=== PATIENT | male | born 1950 | race Caucasian/White ===

== ENCOUNTER → 2018-06-06 | Day surgery (SDC) | payer OTHER ==
[2018-06-05 12:27] VITALS: BMI 20.3
--- NOTE | 2018-06-05 19:05 | HP ---
HISTORY OF PRESENT ILLNESS: This is a 68-year-old male, who lives in [place]. The patient had gastric cancer surgery when he was living in [place]. The patient is doing well at present time. He has no specific GI symptoms. He comes for follow EGD because of previous gastric cancer surgery. ALLERGIES: NONE. MEDICAL ILLNESS: 1. Gastric cancer, status post surgery in 2017 and had two more repeat surgeries. 2. History of pancreatitis. SOCIAL HISTORY: The patient is a former smoker. Does drink alcohol socially. PHYSICAL EXAMINATION: GENERAL: Appears very comfortable. VITAL SIGNS: Stable. His pulse is 70, blood pressure 130/78. Conjunctivae clear. CARDIOVASCULAR SYSTEM: First and second heart sounds heard. LUNGS: Clear to auscultation. ABDOMEN: Soft. No organomegaly. No tenderness. No masses. ADMITTING DIAGNOSIS: 68-year-old male with gastric cancer, status post surgery. PLAN: Followup EGD. Job ID: [id number]
[~2018-06-06] MED LIST: Lidocaine 1% PF 5 ML VIAL ONE; PROPOFOL 200 MG/20 ML VIAL ONE
--- NOTE | 2018-06-06 12:29 | OP ---
DATE OF PROCEDURE: 06/06/2018 PREOPERATIVE DIAGNOSIS: A 68-year-old male with previous gastric cancer surgery in 2017. The patient has had 2 more surgeries because of minor complication. The patient also has had gastric ulcer with positive Helicobacter, treated with antibiotics in the past. The patient underwent followup EGD because of the previous gastric cancer surgery. POSTOPERATIVE DIAGNOSES: 1. Normal esophagus. 2. Normal gastric remnants. 3. Previous Billroth I anastomosis. 4. Multiple ulcers in the small bowel segment just above the anastomosis. PROCEDURE PERFORMED: Esophagogastroduodenoscopy with biopsy. DESCRIPTION OF PROCEDURE: The patient was placed on his left lateral position and was given sedation by Anesthesia Department. A Pentax video gastroscope under direct vision passed down the oropharynx, past the GE junction into the stomach. The esophageal mucosa appeared normal. At the GE junction, no pathology seen. The patient has had previous partial gastrectomy with Billroth I anastomosis. The anastomotic area appears healthy. The gastric remnant include the gastric body and fundus and cardia, no pathology seen. The scope was advanced into the small bowel. The small bowel just above the anastomosis shows multiple ulcerations. Two of the ulcer were large and quite deep, other two were small. The scope was advanced down as well as down the small bowel. There was no pathology seen. The scope was withdrawn back in the stomach. A biopsy was obtained from the stomach for Helicobacter pylori infection. The stomach decompressed and the scope removed. DISCHARGE PLANNING: A 68-year-old male, who is from [place] visiting this country. The patient has had a partial gastrectomy for gastric carcinoma in 2017 and he has also been treated for Helicobacter pylori ulcer in the past. The patient totally asymptomatic. He underwent EGD because of his gastric cancer surgery. EGD showed previous partial gastrectomy with a Billroth I anastomosis. He had multiple ulcerations on the small bowel side. Biopsies were obtained from the stomach. DISCHARGE MEDICATIONS: 1. Omeprazole 40 once a day. 2. Await gastric biopsy and decide further course of therapy. 3. May consider repeat EGD in 2 or 3 months. Job ID: [id number]
== END ==
LOC: SDC 05:54
PROVIDERS: ATTEND Internal Medicine Gastroenterology
PROC: 0DB68ZX Excision of Stomach, Via Natural or Artificial Opening Endoscopic, Diagnostic (ICD-10-PCS; principal; 2018-06-06)
DX: K63.3 Ulcer of intestine (principal); Z85.028 Personal history of other malignant neoplasm of stomach; Z87.891 Personal history of nicotine dependence; Z90.3 Acquired absence of stomach [part of]
CPT/HCPCS: 88305; 88312; J2001; J2704